=== PATIENT | female | born 1960 | race Caucasian/White ===

== ENCOUNTER 2017-04-23 17:59 | Inpatient (IN) | payer BC ==
--- NOTE | 2017-04-23 18:21 | CPEKG ---
Heart Rate: 92 RR Interval: 652 P-R Interval: 176 QRSD Interval: 158 QT Interval: 428 QTC Interval: 530 P [place]: 4 QRS [place]: 90 T Wave [place]: -54 EKG Severity - ABNORMAL ECG - EKG Impression: SINUS RHYTHM EKG Impression: NONSPECIFIC INTRAVENTRICULAR CONDUCTION DELAY EKG Impression: Course widening left bundle branch block pattern, repolarization abnormality, EKG Impression: no previous Electronically Signed By: Anthony Childress 23-Apr-2017 18:43:17
[2017-04-23] MEDS ORDERED: NITROGLYCERIN/DEXTROSE 250 ML IV ONE (18:33)
[2017-04-23] MEDS ORDERED: ASPIRIN 81 MG CHEWABLE TAB PO ONE (18:33)
[2017-04-23 18:38] LABS: PLATELET COUNT 181 10^3/uL (150-400)
--- NOTE | 2017-04-23 18:39 | EDPHY ---
H & P Stated Complaint: CHEST TIGHTNESS/ELEVATED BP/SOB Time Seen by Provider: 04/23/17 18:20 HPI/ROS: CHIEF COMPLAINT: Chest pain HISTORY OF PRESENT ILLNESS: The patient is a 56-year-old female who denies any significant medical or cardiac history other than being overweight. She states that at 4:00 a.m. She had sudden pressure in her chest and felt like she had been punched in the chest. This was 2 and 0.5 hr ago. She then drove to [facility] but there was a long wait so she went to the urgent care but they told her blood pressure was too high so she came here. She does not feel lightheaded or dizzy. No diaphoresis. No nausea vomiting. The pain does not radiate. No recent travel or injury. Nonsmoker. REVIEW OF SYSTEMS: Constitutional: denies: chills, fever, recent illness, recent injury EENTM: denies: blurred vision, double vision, nose congestion Respiratory: denies: cough, shortness of breath Cardiac: See HPI Gastrointestinal/Abdominal: denies: abdominal pain, diarrhea, nausea, vomiting, blood streaked stools Genitourinary: denies: dysuria, frequency, hematuria, pain Musculoskeletal: denies: joint pain, muscle pain Skin: denies: lesions, rash, jaundice, bruising Neurological: denies: headache, numbness, paresthesia, tingling, dizziness, weakness Hematologic/Lymphatic: denies: blood clots, easy bleeding, easy bruising Immunologic/allergic: denies: HIV/AIDS, transplant EXAM: GENERAL: Well-appearing, overweight and in no acute distress. HEAD: Atraumatic, normocephalic. EYES: Pupils equal round and reactive to light, extraocular movements intact, sclera anicteric, conjunctiva are normal. ENT: TMs normal, nares patent, oropharynx clear without exudates. Moist mucous membranes. NECK: Normal range of motion, supple without lymphadenopathy or JVD. LUNGS: Breath sounds clear to auscultation bilaterally and equal. No wheezes rales or rhonchi. HEART: Regular rate and rhythm without murmurs, rubs or gallops. ABDOMEN: Soft, nontender, normoactive bowel sounds. No guarding, no rebound. No masses appreciated. BACK: No CVA tenderness, no spinal tenderness, step-offs or deformities EXTREMITIES: Normal range of motion, no pitting or edema. No clubbing or cyanosis. NEUROLOGICAL: Cranial nerves II through XII grossly intact. Normal speech, normal gait. 5/5 strength, normal movement in all extremities, normal sensation PSYCH: Normal mood, normal affect. SKIN: Warm, dry, normal turgor, no visible rashes or lesions. Source: Patient Exam Limitations: No limitations - Personal History Current Tetanus/Diphtheria Vaccine: Unsure - Medical/Surgical History Hx Asthma: No Hx Chronic Respiratory Disease: No Hx Diabetes: No Hx Cardiac Disease: No Hx Renal Disease: No Hx Cirrhosis: No Hx Alcoholism: No Hx HIV/AIDS: No Hx Splenectomy or Spleen Trauma: No Other PMH: DENIES - Family History Significant Family History: No pertinent family hx - Social History Smoking Status: Never smoked Alcohol Use: Sober Drug Use: None Constitutional: Initial Vital Signs Temperature (C) 36.6 C 04/23/17 18:04 Heart Rate 91 04/23/17 18:04 Respiratory Rate 19 04/23/17 18:04 Blood Pressure 168/107 H 04/23/17 18:04 O2 Sat (%) 96 04/23/17 18:04 O2 Delivery Mode Nasal Cannula O2 (L/minute) 2 Allergies/Adverse Reactions: nitrofurantoin [From Macrodantin] Allergy (Verified 04/23/17 20:58) Other-Enter Comments Home Medications: Medication Instructions Recorded Multivitamins [Multivitamin (*)] 1 tab PO HS 04/23/17 Triamterene/Hctz 37.5/25 [Dyazide 1 cap PO DAILY 04/23/17 37.5/25 (*)] Albuterol Sulfate [Proair Hfa] 8.5 gm IH TID PRN #1 hfa.aer.ad 04/24/17 Medical Decision Making - Diagnostics EKG Interpretation: An EKG obtained and was read and documented in trace view. Please see trace view for full reading and report. QRS widening consistent with left bundle branch block and repolarization abnormality, no previous for comparison ED Course/Re-evaluation: 6:[address] Mccarthy from Cardiology. He reviewed the EKG. He states that does not look like an acute VT. To me it looks like an old left bundle but I cannot find any old EKGs. The patient is well-appearing and has stable vital signs. Dr. Mccarthy recommended aspirin and nitro on metoprolol and check troponins and CK. 8:[address] Mccarthy evaluated the echo and states that it is unremarkable other than a changes associated with the left bundle. I spoke with Dr. Briones who will admit. Differential Diagnosis: Partial list of the Differential diagnosis considered include but were not limited to; acute coronary disease, left bundle branch block and although unlikely based on the history and physical exam, I also considered PE, dissection, infection. - Data Points Laboratory Results: Laboratory Results 04/23/17 18:25 04/23/17 18:25 Medications Given: Discontinued Medications Acetaminophen (Tylenol) 650 mg PO Q4HRS PRN PRN Reason: Pain, Mild/Fever, Can Take PO Stop: 10/20/17 22:13 Last Admin: 04/24/17 12:59 Dose: 650 mg Albuterol (Proventil Neb) 3 ml IH ONCE ONE Stop: 04/24/17 09:38 Last Admin: 04/24/17 11:41 Dose: Not Given Albuterol (Proventil Neb) 3 ml IH Q4HRS PRN PRN Reason: Short of Breath/Dyspnea Stop: 10/21/17 09:36 Last Admin: 04/24/17 17:57 Dose: 3 ml Aspirin (Aspirin) 324 mg PO EDNOW ONE Stop: 04/23/17 18:34 Last Admin: 04/23/17 18:47 Dose: 324 mg Aspirin (Aspirin) 325 mg PO DAILY [facility] Stop: 10/21/17 08:59 Last Admin: 04/24/17 10:32 Dose: 325 mg Diazepam (Valium) 5 mg PO ONCALL ONE Stop: 04/24/17 09:41 Last Admin: 04/24/17 10:32 Dose: 5 mg Diphenhydramine HCl (Benadryl) 25 mg PO ONCALL ONE Stop: 04/24/17 09:41 Last Admin: 04/24/17 10:32 Dose: 25 mg Enoxaparin Sodium (Lovenox) 40 mg SC DAILY [facility] Stop: 10/21/17 08:59 Last Admin: 04/24/17 17:50 Dose: Not Given Famotidine (Pepcid) 20 mg PO ONCALL ONE Stop: 04/24/17 09:41 Last Admin: 04/24/17 10:32 Dose: 20 mg Nitroglycerin/Dextrose (Nitroglycerin 200 Mcg/Ml (Premix)) 250 mls @ 0 mls/hr IV CONT ONE; Titrate PRN Reason: Protocol Stop: 04/23/17 18:34 Last Admin: 04/23/17 18:48 Dose: 250 mls Metoprolol Tartrate (Lopressor Injection) 5 mg IVP Q5M ROBYN Stop: 04/23/17 18:56 Last Admin: 04/23/17 19:14 Dose: 5 mg Morphine Sulfate (Morphine) 2 mg IVP Q1HR PRN PRN Reason: Pain, Severe Stop: 05/04/17 12:05 Last Admin: 04/24/17 12:56 Dose: 1 mg Departure - Departure Disposition: [facility] Inpatient Acute Clinical Impression: Chest pain Qualifiers: Chest pain type: unspecified Qualified Code(s): R07.9 - Chest pain, unspecified Condition: Fair
[2017-04-23] MEDS: METOPROLOL TARTRATE 5 MG/5 ML INJ IVP SCH ×3 (18:52→19:14)
[2017-04-23 19:03] LABS: CREATINE KINASE 69 IU/L (0-156)
[2017-04-23 19:05] LABS: INR 0.85 (0.83-1.16); PROTIME(PATIENT) 11.8 SEC (12.0-15.0)
--- NOTE | 2017-04-23 21:01 | ECHO ---
[email or web address] [address] [address] Main: [phone] Fax: Transthoracic Echocardiogram Name: GEE ROBERSON MR#: [id number] Study Date: 04/23/2017 Study Time: 07:01 PM Date of : 1960 Age: 56 year(s) Height: 167.6 cm (66 in.) Weight: 106.6 kg (235 lb.) BSA: 2.14 m2 Gender: Female Examination: Echo Indication: Chest Pain Image Quality: Contrast: Requested by: Anthony Childress BP: 142 mmHg/108 mmHg Heart Rate: Rhythm: Tachycardia Indication: Chest Pain Procedure Staff [employer] Physics Teacher: Sandra Tipton [facility] Reading Physician: Cristian Broussard MD Requesting Provider: Conclusions: Normal global systolic LV function. EF is 55 %. Abnormal septal motion secondary to LBBB or CAD. No hemodynamically significant valvular abnormalities Measurements: Chambers Valvular Assessment AV/MV Valvular Assessment TV/PV Normal Normal Normal Name Value Range Name Value Range Name Value Range IVSd (2D): 1.1 cm (0.6 cm-1.1 AV Vmax: 1.07 m/s (1 m/s-1.7 PV Vmax: 1.29 m/s (0.6 m/s-0.9 cm) m/s) m/s) LVDd (2D): 5.1 cm (3.9 cm-5.3 AV maxP mmHg ( - ) PV PGmax: 7 mmHg ( - ) cm) LVOT Vmax: 0.76 m/s (0.7 m/s-1.1 LVDs (2D): 3.7 cm (2.1 cm-4 m/s) cm) MV E Vmax: 0.46 m/s ( - ) LVPWd (2D): 1.0 cm ( - ) MV A Vmax: 0.90 m/s ( - ) LVEF (BP): 55 % (>=55 %) MV E/A: 0.51 ( - ) RVDd(2D): 2.8 cm (1.9 cm-3.8 cmmm) Continued Measurements: Chambers Valvular Assessment AV/MV Name Value Name Value LADs: 3.0 cm MV E/E' Lateral: 7.60 LADs Lon.8 cm LA Area: 15.0 cm2 LA Volume: 35 ml LA Volume Index: 16.4 ml/m2 Patient: GEE ROBERSON Study Date: 04/23/2017 Page 1 of 2 07:01 PM Findings: Left Ventricle: Normal size left ventricle. No LV hypertrophy. Normal global systolic LV function. EF is 55 %. Normal diastolic LV function. Abnormal septal motion secondary to LBBB or CAD. Right Ventricle: Normal size right ventricle. Normal RV function. Left Atrium: The left atrium is normal in size. Right Atrium: The right atrium is normal in size. Mitral Valve: The mitral valve is normal in appearance and function. There is no significant mitral valve regurgitation. No mitral stenosis is present. Aortic Valve: The aortic valve is normal in appearance and function. There is no aortic valve regurgitation. No aortic valve stenosis is present. Tricuspid Valve: The tricuspid valve is normal in appearance and function. There is no tricuspid valve regurgitation. Pulmonary artery pressure is not obtained due to inadequate TR jet. Pulmonic Valve: The pulmonic valve is normal in appearance and function. There is no pulmonic regurgitation seen. Aorta: The aorta is normal. Pericardium: Trivial anterior pericardial effusion. There is pericardial fat. (No Signature Object) Patient: GEE ROBERSON Study Date: 04/23/2017 Page 2 of 2 07:01 PM [id number]
[2017-04-23] MEDS ORDERED: ONDANSETRON 4 MG/2 ML VIAL IVP PRN (22:14)
[2017-04-23] MEDS ORDERED: ACETAMINOPHEN 325 MG TAB PO PRN (22:14)
[2017-04-23] MEDS ORDERED: ONDANSETRON DISINTEGRATING 4 MG TAB PO PRN (22:14)
--- NOTE | 2017-04-23 22:50 | GHP ---
[f rep st] HISTORY AND PHYSICAL DATE OF ADMISSION: 04/23/2017 CHIEF COMPLAINT: Chest pain. HISTORY OF PRESENT ILLNESS: A 56-year-old female with a history of obesity, who presents with sudden onset of severe substernal chest pain. The patient describes it as being kicked in the chest with a severe squeezing pressure. The patient reports she has had this pain before. First episodes began several years ago and would recur intermittently, more predictably at rest. The patient could not co nfirm that there was any correlation with exertion. The patient notes that the frequency of these at tacks has increased over the course of the many years. Within the last year, the patient notes episo rabia as frequent as every 4 days, almost always coming on in the evening while she is resting, and sit ting at her computer during the day when she is doing sedentary work. The patient reports associated shortness of breath with these attacks. They typically last 30 minutes to an hour, and then resolve spontaneously. The patient did seek evaluation for this many years ago, reports that she had an EKG done at the time, and was told it is normal. She has not had stress testing for this. Patient alia es any changes in her bowel habits, dysuria, hematuria. Denies any lower extremity edema. Denies an y fevers, chills, cough, dysphagia. Reports intermittent history of reflux-type symptoms. When she has them, they feel very different from the chest pain she is reporting here. Does not predictably t jason any acid-suppressing medications. PAST MEDICAL HISTORY: 1. Lower extremity edema, for which she takes triamterene. 2. Obesity. SOCIAL HISTORY: Negative for tobacco. She does enjoy a glass of wine from time to time. No illicit drugs or marijuana. No jyie-ass-aeyvsuk supplements or weight loss medications. FAMILY HISTORY: Unknown. She is adopted. REVIEW OF SYSTEMS: A 10-point review of systems is negative with the exception of that reported in t willi HPI. PHYSICAL EXAMINATION: VITAL SIGNS: Blood pressure 137/96, heart rate 71, respiratory rate 16, 93% o n room air, 36.9. IN GENERAL: This is an obese appearing middle-aged female in no acute distress. HEENT: Notable for moist mucous membranes. Eye exam is negative for any icterus. CARDIAC: Patient is regular rate and rhythm. No murmurs are appreciated. PULMONARY: She is clear to auscultation b ilaterally. GASTROINTESTINAL: Positive bowel sounds. Abdomen is soft, obese, and nontender. MUSCU LOSKELETAL: Notable for trace lower extremity edema. SKIN: Negative for any rashes. NEUROLOGIC: She is alert and oriented x3. PSYCHIATRIC: She is pleasant and cooperative on interview and examina tion. DATA: Troponin is less than 0.012. EKG, which I personally reviewed and interpreted, shows a left b undle branch block with no acute ST-T changes. ASSESSMENT AND PLAN: This is a 56-year-old female presenting with chest pain. 1. Acute chest pain. It does sound as if the frequency and the intensity of her symptoms are increa sing over the course of the last year. Patient's EKG at presentation shows a left bundle branch bloc k, which we do not have olds to compare to. Per her report, she had a normal EKG a few years ago, wh ich is more concerning for possible ischemic disease. Troponins x2 are negative. We will admit the patient, initiate daily aspirin, monitor on telemetry overnight, plan to make the patient n.p.o. afte r midnight, and plan for cardiac catheterization in the morning. 2. Obesity. Patient is fully aware of her need to lose weight. Can provide additional counseling a nd dietary consultation while inpatient. 3. Prophylaxis with Lovenox. Diet cardiac, then n.p.o. after midnight for catheterization in the mo rning. DISPOSITION: I expect greater than 2 midnights if the patient has abnormal cardiac cath imaging belinda sheffield. I have discussed the case with Dr. Broussard from Cardiology. They will consult in the morning for catheterization. /[id number]/MODL
[2017-04-24 07:45] VITALS: TEMP 98
[2017-04-24] MEDS ORDERED: ENOXAPARIN 40 MG/0.4 ML SYR SC SCH (09:00)
[2017-04-24] MEDS ORDERED: ASPIRIN 325 MG TAB PO SCH (09:00)
--- NOTE | 2017-04-24 09:07 | GCON ---
[f rep st] CONSULTATION CHIEF COMPLAINT: Chest pain. HISTORY OF PRESENT ILLNESS: This is a 56-year-old with a history of overweight, who comes in with call bsternal chest pain with feeling of an elephant sitting on her chest, with severe squeezing type of p ressure. She mentions that she has been having episodes like this for the past several years and wou ld recur intermittently, most predictably at rest, but not with exertion. Over the years, she has no t developed any exercise incapacity. She has been able to exercise without any chest pain, shortness of breath, lightheadedness, or dizziness. The frequency of these pains have increased over the cour se of many years and she has had episodes every 2-3 days in the evening, during rest. It does take h er breath away and she has to make an effort to take in deep breaths. The patient gives a mixed hist ory of being evaluated for something like this in the past. However, no stress testing was done and she does not recall if she has ever had an EKG. She denies any recent fevers, chills, nausea, vomiti ng, cough. The patient does have a left bundle branch block, however, it is unknown if this is chron ic or acute. PAST MEDICAL HISTORY: Lower extremity edema, for which she takes triamterene. Overweight. ALLERGIES: Nitrofurantoin. SOCIAL HISTORY: Remote history of tobacco use. Occasional alcohol use. No illicit drugs. No over- the-counter medications. FAMILY HISTORY: Unknown. REVIEW OF SYSTEMS: Other than the above is negative. PHYSICAL EXAM: VITAL SIGNS: Blood pressure 144/91, pulse of 70, respiratory rate 16. HEENT: Pupil s equal, reacting to light, accommodating. No pallor. Anicteric. NECK: No JVD. No thyromegaly. CHEST EXAM: Good air entry, bilaterally equal. No rales, rhonchi, rub. HEART: S1, S2 regular. No S3. No murmurs. ABDOMEN: Soft, nontender. No guarding or rigidity. Bowel sounds present. EXTRE MITIES: No edema. NEUROLOGIC: Grossly intact. PSYCHIATRIC: Alert, oriented, pleasant, cooperativ e. EKG: Left bundle branch block. However, does not meet the criteria for an acute UT. Cardiac enzyme s are negative. Echocardiogram shows dyssynchrony related to left bundle branch block, but otherwise EF is normal. IMPRESSION AND PLAN: This is a 56-year-old female with past history of hysterectomy, who is overweig ht, has a known family history, who comes in with chest pain, which has been ongoing for a number of years, however, but acute recently and has left bundle branch block, which does not meet the criteria for acute myocardial infarction. Her cardiac enzymes are negative and the patient was observed over night. In her case, the patient has intermediate risk for probability of coronary artery disease and hence, ideally, a stress test would be recommended. However, considering her weight, I suspect that there will be breast attenuation artifact, which will turn up as questionably positive and will subj ect her to cardiac catheterization and I want to avoid an additional procedure. Hence, recommendatio n for cardiac catheterization. I have explained to her the risks and benefits of the procedure. She understands the risk of stroke, UT due to the procedure, however, she recognizes that this would be a definitive test, which will give us more information about the status of coronary artery disease. Thank you for letting us participate in the patient's care. Feel free to call for questions. /[id number]/MODL
[2017-04-24] MEDS ORDERED: ALBUTEROL 3 ML DEYVIAL IH ONE (09:37)
[2017-04-24] MEDS ORDERED: ALBUTEROL 3 ML DEYVIAL IH PRN (09:37)
--- NOTE | 2017-04-24 09:39 | PDCARPN ---
Cardiology Progress Note Chief Complaint: Patient has noted chest pains for some time, and progression of the discomfort has been noted. Assessment/Plan: Assessment: Patient is a 56 y/o female with history of obesity, but no CAD, HTN, HLP, or DM. Patient is adopted, so family history is completely unknown. She has appreciated progressive chest discomfort - best described as pain - to the substernal region. There has also been radiation of discomfort into the shoulder, neck, and jaw on occasion. In the remote past, the patient had upper and lower endoscopy without reports of gross pathology noted (these tests were over three years ago). Daily chest discomfort is noted with moderate pain. ECG with LBBB pattern (uncertain on the duration of this finding), and no elevation in cardiac biomarkers has been noted. Discussion about stress testing as well as left heart catheterization were undertaken. Angiography provides the patient with the most information about CAD given lack of family history and the symptoms noted. Plan: (1) Left heart catheterization today (2) Annual assessment of cholesterol and LFTs (3) Regular and routine exercise is needed (4) Diet low in cholesterol and sat fat Subjective: chest pains to the substernal region Reviewed/Discussed With: hospitalist Objective: Vital Signs (8 Hrs) Temp Pulse Resp BP Pulse Ox 04/24/17 07:43 36.7 C 69 15 124/75 H 91 L 04/24/17 04:00 36.3 C 82 16 121/72 H 96 Intake/Output (24 Hrs) 04/23/17 04/24/17 04/25/17 05:59 05:59 05:59 Intake Total 550 Output Total 0 Balance 550 Intake: Oral (ml) 350 IV Infused (ml) 200 Output: Urine (ml) 0 Other: Weight 107.5 kg Intake Quantity Yes Sufficient Number of Voids Toilet 1 Result Diagrams: 04/23/17 18:25 04/23/17 18:25 Cardiac Labs: Cardiac Lab Results (72 Hrs) 04/23/17 21:25 CK-MB (CK-2) Fraction 0.38 Troponin I < 0.012 Telemetry: LBBB pattern with sinus rhythm - Physical Exam Constitutional: WDWN, healthy appearing, no apparent distress, obese Eyes: PERRL, EOMI Ears, Nose, Mouth, Throat: moist mucous membranes Cardiovascular: regular rate and rhythm, no murmurs, no rubs, no gallops, pulses symmetric bilat, No jugular vein distention Peripheral Pulses: 2+: dorsalis-pedis (R), dorsalis-pedis (L) Respiratory: clear to auscultate bilat, no crackles, no wheezes Gastrointestinal: normoactive bowel sounds Skin: no rashes, no edema Musculoskeletal: no muscular tenderness, no joint effusions Neurologic: AAOx3, CN II-XII grossly intact Psychiatric: cooperative, interactive, following commands ICD10 Worksheet Patient Problems: Problems Problem Status Onset Chest pain Acute
[2017-04-24] MEDS ORDERED: diphenhydrAMINE 25 MG CAP PO ONE (09:40)
[2017-04-24] MEDS ORDERED: NITROGLYCERIN 0.4 MG BTL SL PRN (09:40)
[2017-04-24] MEDS ORDERED: TEMAZEPAM 15 MG CAP PO PRN (09:40)
[2017-04-24] MEDS ORDERED: DIAZEPAM 5 MG TAB PO ONE (09:40)
[2017-04-24] MEDS ORDERED: FAMOTIDINE 20 MG TAB PO ONE (09:40)
--- NOTE | 2017-04-24 09:40 | PDPROPOC ---
Sedation Plan of Care Sedation Plan of Care: vital signs stable, mental status noted, patient educated of risks, benefits, alternatives, patient can tolerate sedation ASA Classification: ASA 2 Planned drugs: fentanyl, midazolam Mallampati Score: Class 2 Mallampati Reference Image: Patient passed 3-3-2 rule?: Yes
[2017-04-24] MEDS ORDERED: NS 1,000 ML IV SCH (09:45)
[2017-04-24] MEDS ORDERED: LIDOCAINE 1% 300 MG/30 ML SDV ONE (10:11)
[2017-04-24] MEDS ORDERED: MIDAZOLAM 2 MG/2 ML VIAL ONE (10:12)
[2017-04-24] MEDS ORDERED: IOPAMIDOL (ISOVUE-370) 150 ML BTL IV ONE (10:12)
[2017-04-24] MEDS ORDERED: fentaNYL 100 MCG/2 ML INJ ONE ×2 (10:12→11:09)
--- NOTE | 2017-04-24 10:17 | CPEKG ---
Heart Rate: 71 RR Interval: 845 P-R Interval: 184 QRSD Interval: 158 QT Interval: 452 QTC Interval: 492 P Weskan: 41 QRS Weskan: -35 T Wave [place]: 116 EKG Severity - ABNORMAL ECG - EKG Impression: SINUS RHYTHM EKG Impression: PROBABLE LEFT ATRIAL ABNORMALITY EKG Impression: LEFT BUNDLE BRANCH BLOCK Electronically Signed By: Coy Guzman 24-Apr-2017 12:25:43
--- NOTE | 2017-04-24 10:38 | PDMN ---
Medical Necessity Medical necessity: M40 angina: A-1 day: progressive, prolonged at rest with poss intervention needed pt also shows L BBB 426.2 - angiography pending. anticipate > 2 mdnights for cardiac cath and further monitoring of CP.
--- NOTE | 2017-04-24 10:52 | HOSPPROG ---
Hospitalist Progress Note Assessment/Plan: first encounter with this patient #Chest Pain, trops negative x 2, TTE c/w EF 55%, abnormal septal motion #Obesity #Pedal Edema #LBBB Plan: -Discussed with Cards, they will proceed with Cath today -She also has a cough and some decrease lung sounds and prolonged exp phase on exam, will try bronchodilator -check lipid panel, a1c -cont Aspirin -Lovenox for DVT proph Dispo: pending cath Subjective: no chest pain. + cough with deep inspiration Objective: Vital Signs Temp Pulse Resp BP Pulse Ox 36.7 C 69 15 124/75 H 91 L 04/24/17 07:43 04/24/17 07:43 04/24/17 07:43 04/24/17 07:43 04/24/17 07:43 04/23/17 04/24/17 04/25/17 05:59 05:59 05:59 Intake Total 550 Output Total 0 Balance 550 PT 11.8 SEC (12.0-15.0) L 04/23/17 18:25 INR 0.85 (0.83-1.16) 04/23/17 18:25 - Physical Exam Constitutional: no apparent distress, not in pain Eyes: PERRL, EOMI Ears, Nose, Mouth, Throat: moist mucous membranes, hearing normal Cardiovascular: regular rate and rhythym, No edema Respiratory: no respiratory distress, expiratory wheeze (mild, cleared), other ( prolonged exp phase) Gastrointestinal: normoactive bowel sounds Genitourinary: no bladder fullness Skin: warm Musculoskeletal: full muscle strength Neurologic: AAOx3 Psychiatric: interacting appropriately, not anxious, not encephalopathic, thought process linear Lymph, Heme, Immunologic: No petechiae ICD10 Worksheet Patient Problems: Problems Problem Status Onset Chest pain Acute
[2017-04-24] MEDS ORDERED: ATROPINE SULFATE 1 MG/10 ML SYR IVP PRN (12:06)
--- NOTE | 2017-04-24 12:11 | PDDXCAT ---
Diagnostic Cath Note - . Date: 04/24/17 Mine Supervisor: Peter Indication: CCC Class III and IV angina on medical treatment - Procedure Access: right groin Procedure: left heart catheterization, coronary angiography, left ventriculogram - Materials Left Heart Cath size: 6F Left Heart Cath materials: standard multipack (JL4, JR4, pigtail) - Findings-Left Heart Catheterization LM: Short vessel with bifurcation into the LAD and LCX. No luminal irregularities were noted. LAD: Medium diameter vessel without luminal irregularities noted. There was one principal diagonal noted. LCX: Medium diameter vessel without luminal irregularities appreciated. There is one principal obtuse marginal noted (with bifurcation in mid vessel). Mid and distal LCX was rather small and diminuative. RCA: Medium diameter vessel. Supply to the PDA from the right (dominant vessel) . No luminal irregularities were noted. EDP: 10 mm Hg LVEF: 65% Wall motion: normal Complications: none Estimated blood loss: <50ml Closure method: Angioseal Assessment: Patient is a 56 y/o female with complaints of chest pains with associated symptoms. Angiography without luminal irregularities noted. Normal left ventricular systolic ejection fraction was noted. Plan: Primary prevention should continue. Annual assessment of cholesterol and LFTs. Regular and routine exercise. Diet low in cholesterol and sat fat. Would consider reconsultation in the outpatient setting with GI given the symptoms that have been noted. Intervention: none Patient Problems: Problems Problem Status Onset Chest pain Acute
--- NOTE | 2017-04-24 12:19 | ASMTCASEMG ---
Living Arrangements What is your living Answers: With Spouse arrangement? Who do you live with? Type Of Residence What kind of residence do Answers: House you live in? Discharge Plan Comments Coordination Status Comments Notes: Pt is a 56 y/o female admitted for chest pain. Pt will most likely d/c independent when medically stable. No therapies ordered at this time. CM available for changes. Plan: Independent Date Signed: 04/24/2017 12:18 PM Electronically Signed By:HELDER Baez
[2017-04-24 16:00] VITALS: BP 110/70
[2017-04-24 16:19] VITALS: O2SAT 94
--- NOTE | 2017-04-24 17:45 | PDDCSUM ---
Discharge Summary Discharge Summary: 56 yo female admitted with chest pain. Cardiac cath was unremarkable She also has a cough and some decrease lung sounds and prolonged exp phase on exam, will try bronchodilator. This may be the cause of the pain Anxiety could also be contributing but she denies anxiety She denied any GERD sx's although she previously has had a w/u for this. If the bronchodilator does not help, would do a trial of PPI DDX #Chest Pain, trops negative x 2, TTE c/w EF 55%, abnormal septal motion, negative cath #Obesity #Pedal Edema #LBBB Exam: see PN from today meds: see med rec f/u: with pcp in one week total time spent on d/c is 35 minutes
[2017-04-24 18:02] VITALS: PULSE 73; RESP 18
== END 2017-04-24 19:35 | disposition home or self-care (01) | DRG 287 ==
LOC: OBSVTOIN 20:47 → F2W 21:43
PROVIDERS: ADMIT Hospitalist; ATTEND Family Medicine
PROC: 4A023N7 Measurement of Cardiac Sampling and Pressure, Left Heart, Percutaneous Approach (ICD-10-PCS; principal; 2017-04-24)
PROC: B2111ZZ Fluoroscopy of Multiple Coronary Arteries using Low Osmolar Contrast (ICD-10-PCS; principal; 2017-04-24)
PROC: B2151ZZ Fluoroscopy of Left Heart using Low Osmolar Contrast (ICD-10-PCS; principal; 2017-04-24)
DX: R07.89 Other chest pain (principal); I44.7 Left bundle-branch block, unspecified; R05 Cough; R60.0 Localized edema; E66.9 Obesity, unspecified; Z68.37 Body mass index [BMI] 37.0-37.9, adult
CPT/HCPCS: 96374; C1760; J1644; J2250; J2270; J3010; J7613; Q9967

== ENCOUNTER → 2017-04-29 | Outpatient (CLI) | payer BC | LOC: FIMAGING 14:11 | PROVIDERS: ATTEND Family Medicine | DX: Z13.83 Encounter for screening for respiratory disorder NEC (principal) ==

== ENCOUNTER → 2018-06-11 | Outpatient (CLI) | payer BC | LOC: BMCIMAGING 16:04 | PROVIDERS: ATTEND Podiatrist Foot & Ankle Surgery | DX: M79.89 Other specified soft tissue disorders (principal) ==